=== PATIENT | female | born 1945 | race Caucasian/White ===

== ENCOUNTER → 2017-10-06 | Outpatient (CLI) | payer MEDICARE ==
[~2017-10-06] MED LIST: CALTRATE PO; CITALOPRAM HBR20 MG PO; CO Q-10 PO; CRESTOR5 MG PO; DIOVAN160 MG PO; LORAZEPAM1 MG PO; NORCO 10-325 T1 EACH PO; VITAMIN B-12 PO
--- NOTE | 2017-10-06 08:59 | Diagnostic Imaging Report ---
PROCEDURE:ABDOMINAL ULTRASOUND COMPARISON:None. INDICATIONS:RLQ Abdominal Pain TECHNIQUE: Puentes-scale and color sonographic images were obtained of the abdomen in transverse and sagittal planes. FINDINGS: Liver: 13.6 cm in length and the right midclavicular line. Normal parenchymal echogenicity. No focal mass. Main portal vein: 1.1 cm in caliber, patent with hepatopetal flow Gallbladder: Surgically removed. Common Bile Duct: Dilated to 1.5 cm caliber. Right kidney: 9.3 cm in length, normal renal cortical echogenicity without solid or cystic mass lesion. No shadowing calculus or hydronephrosis. Left kidney: 10.3 cm in length, normal renal cortical echogenicity without solid or cystic mass lesion. No shadowing calculus or hydronephrosis. Spleen: 10 cm in length. Uniform parenchymal echotexture. Pancreas: The visualized portions are unremarkable. Inferior vena cava: Patent Aorta: Non-aneurysmal Ascites: None CONCLUSION: Dilatation of the common bile duct is likely a consequence of cholecystectomy. Correlation with serum bilirubin is suggested. Otherwise unremarkable abdominal ultrasound. Dictated by: Dannie Martinez M.D. on 10/06/2017 at 9:04 Electronically approved by: Dannie Martinez M.D. on 10/06/2017 at 9:04
--- NOTE | 2017-10-06 09:15 | Diagnostic Imaging Report ---
PROCEDURE:PELVIC ULTRASOUND COMPARISON:None. INDICATIONS:RLQ Pain TECHNIQUE: Grayscale transverse and sagittal transabdominal images were obtained of the pelvis. FINDINGS: UTERUS: Surgically removed RIGHT OVARY: Nonvisualized. LEFT OVARY: Not visualized. There is no free fluid within the pelvis. No adnexal masses. Sonographic evaluation of the right lower quadrant of the abdomen, the reported area of clinical concern, shows no mass lesion or fluid collection. CONCLUSION: Status post hysterectomy with nonvisualization of the ovaries. No mass lesion or fluid collection in the area of clinical concern in the right lower quadrant of the abdomen. Dictated by: Dannie Martinez M.D. on 10/06/2017 at 9:20 Electronically approved by: Dannie Martinez M.D. on 10/06/2017 at 9:20
--- NOTE | 2017-10-06 11:35 | Diagnostic Imaging Report ---
EXAM: DXA BONE DENSITY INDICATIONS: Menopause COMPARISON: None. FINDINGS: Proximal left femur total bone mineral density (BMD) (g/cm2):0.886 Femur T-score (standard deviation relative to young adult mean BMD): -0.5 Femur Z-score (standard deviation relative to age-matched control group):1.1 Proximal left femur neck bone mineral density (BMD) (g/cm2):0.737 Femur T-score (standard deviation relative to young adult mean BMD): -1.0 Femur Z-score (standard deviation relative to age-matched control group):0.8 Lumbar bone mineral density (BMD) (g/cm2):1.090 Lumbar T-score (standard deviation relative to young adult mean BMD): 0.4 Lumbar Z-score (standard deviation relative to age-matched control group):2.5 Change since prior exam (%): Femur:Not applicable. Spine:Not applicable. Change since oldest prior exam (%): Femur:Not applicable. Spine:Not applicable. CONCLUSION: 1. Bone mineral density in the left femur is classified as normal. Fracture risk is not increased. 2. Bone mineral density in the spine is classified as normal. Fracture risk is not increased. World Health Organization Classification: *The Z-score is provided for informational purposes. The T-score is preferable for clinical decisions. When comparing exams, a change of >4% is considered statistically significant. SUGGESTED RECOMMENDATIONS: Normal \T\ Osteopenia:Consideration should be given to use of calcium supplementation, daily multiple vitamins and adequate exercise, as preventive measures against osteoporosis, if clinically indicated. Osteoporosis \T\ Severe Osteoporosis:In addition to the above, consideration should be given to medical therapy against osteoporosis, if clinically indicated. Brennon Felix M.D. Dictated by: Brennon Felix M.D. on 10/06/2017 at 11:40 Electronically approved by: Brennon Felix M.D. on 10/06/2017 at 11:40
== END ==
LOC: US 07:23
PROVIDERS: ATTEND Family Medicine
DX: R10.31 Right lower quadrant pain (principal); M89.9 Disorder of bone, unspecified
CPT/HCPCS: 76700; 76856; 77080

== ENCOUNTER 2018-05-31 17:47 | Emergency (ER) | payer MEDICARE ==
[~2018-05-31] VITALS: Ht 157.5 cm; Wt 81.6 kg
--- OUTSIDE RECORDS SUMMARY | 2018-05-31 17:50 | XMS REPORT | Clinical Summary ---
Author Author [facility] Address Unknown Phone Unavailable Care Team Providers Care Hand Crown Pouncer Name Role Phone Jose Brown MD PCP Allergies Not on File Medications Not on file Active Problems Not on file Social History Date Tobacco Use Types Packs/Day Years Used Never Assessed Sex Assigned at Date Recorded Not on file Industry Job Start Date Occupation Not on file Not on file Not on file Travel End Travel History Travel Start No recent travel history available. Last Filed Vital Signs Not on file Plan of Treatment Not on file Results Not on fileafter 05/30/2017 Insurance Payer Benefit Subscriber ID Type Phone Address Plan / Group MEDICARE MEDICARE A xxxxxxxxxx Medicare B MCR SUPPLEMENT/INDIVIDUAL AARP/UNITE xxxxxxxxxxx Medigap D HEALTHCARE (Home) [place] [address]
--- OUTSIDE RECORDS SUMMARY | 2018-05-31 17:50 | XMS REPORT ---
Author Author [facility] Address Unknown Phone Unavailable Care Team Providers Care Wind Turbine Controls Engineer Name Role Phone MARY RAHMAN Unavailable Unavailable Problems This patient has no known problems. Allergies, Adverse Reactions, Alerts This patient has no known allergies or adverse reactions. Medications This patient has no known medications. Results Test Description Test Time Test Comments Text Results Atomic Results Result Comments BONE DXA DUAL ENERGY 2017-10-06 11:40:00 [place] [address] Patient Name: HUDSON FAJARDO MR #: [id number] : 1945 Age/Sex: 71/F Req #: [id number] Adm Physician: Ordered by: MARY RAHMAN MD Report #: [id number] Location: US Room/Bed: Procedure: [id number] DX/BONE DXA DUAL ENERGY Exam Date: Exam Time: REPORT STATUS: Signed EXAM: DXA BONE DENSITY INDICATIONS: Menopause COMPARISON: None. FINDINGS: Proximal left femur total bone mineral density (BMD) (g/cm2): 0.886 Femur T-score (standard deviation relative to young adult mean BMD): -0.5 Femur Z-score (standard deviation relative to age-matched control group): 1.1 Proximal left femur neck bone mineral density (BMD) (g/cm2): 0.737 Femur T-score (standard deviation relative to young adult mean BMD): -1.0 Femur Z-score (standard deviation relative to age-matched control group): 0.8 Lumbar bone mineral density (BMD) (g/cm2): 1.090 Lumbar T-score (standard deviation relative to young adult mean BMD): 0.4 Lumbar Z-score (standard deviation relative to age-matched control group): 2.5 Change since prior exam (%): Femur: Not applicable. Spine: Not applicable. Change since oldest prior exam (%): Femur: Not applicable. Spine: Not applicable. CONCLUSION: 1. Bone mineral density in the left femur is classified as normal. Fracture risk is not increased. 2. Bone mineral density in the spine is classified as normal. Fracture risk is not increased. World Health Organization Classification: *The Z-score is provided for informational purposes. The T-score is preferable for clinical decisions. When comparing exams, a change of >4% is considered statistically significant. SUGGESTED RECOMMENDATIONS: Normal T Osteopenia: Consideration should be given to use of calcium supplementation, daily multiple vitamins and adequate exercise, as preventive measures against osteoporosis, if clinically indicated. Osteoporosis T Severe Osteoporosis: In addition to the above, consideration should be given to medical therapy against osteoporosis, if clinically indicated. Arline Felix M.D. Dictated by: Arline Felix M.D. on 10/06/2017 at 11:40 Electronically approved by: Arline Felix M.D. on 10/06/2017 at 11:40 Dictated By: ARLINE FELIX MD 1140 Transcribed By: SUSIE on 10/06/17 1140 COPY TO: MARY RAHMAN MD PELVIS COMPLETE NON OB 2017-10-06 09:20:00 [place] [address] Patient Name: HUDSON FAJARDO MR #: [id number] : 1945 Age/Sex: 71/F Req #: [id number] Adm Physician: Ordered by: MARY RAHMAN MD Report #: [id number] Location: US Room/Bed: Procedure: [id number] US/US PELVIS COMPLETE NON OB Exam Date: Exam Time: REPORT STATUS: Signed PROCEDURE: PELVIC ULTRASOUND COMPARISON: None. INDICATIONS: RLQ Pain TECHNIQUE: Grayscale transverse and sagittal transabdominal images were obtained of the pelvis. FINDINGS: UTERUS: Surgically removed RIGHT OVARY: Nonvisualized. LEFT OVARY: Not visualized. There is no free fluid within the pelvis. No adnexal masses. Sonographic evaluation of the right lower quadrant of the abdomen, the reported area of clinical concern, shows no mass lesion or fluid collection. CONCLUSION: Status post hysterectomy with nonvisualization of the ovaries. No mass lesion or fluid collection in the area of clinical concern in the right lower quadrant of the abdomen. Dictated by: Hunter Holland M.D. on 10/06/2017 at 9:20 Electronically approved by: Hunter Holland M.D. on 10/06/2017 at 9:20 Dictated By: HUNTER HOLLAND MD 9 Transcribed By: SUSIE on 10/06/17919 COPY TO: MARY RAHMAN MD US ABDOMEN COMPLETE 2017-10-06 09:04:00 [place] [address] Patient Name: HUDSON FAJARDO MR #: [id number] : 1945 Age/Sex: 71/F Req #: [id number] Adm Physician: Ordered by: MARY RAHMAN MD Report #: [id number] Location: Room/Bed: Procedure: [id number] US/US ABDOMEN COMPLETE Exam Date: Exam Time: REPORT STATUS: Signed PROCEDURE: ABDOMINAL ULTRASOUND COMPARISON: None. INDICATIONS: RLQ Abdominal Pain TECHNIQUE: Puentes-scale and color sonographic images were obtained of the abdomen in transverse and sagittal planes. FINDINGS: Liver: 13.6 cm in length and the right midclavicular line. Normal parenchymal echogenicity. No focal mass. Main portal vein: 1.1 cm in caliber, patent with hepatopetal flow Gallbladder: Surgically removed. Common Bile Duct: Dilated to 1.5 cm caliber. Right kidney: 9.3 cm in length, normal renal cortical echogenicity without solid or cystic mass lesion. No shadowing calculus or hydronephrosis. Left kidney: 10.3 cm in length, normal renal cortical echogenicity without solid or cystic mass lesion. No shadowing calculus or hydronephrosis. Spleen: 10 cm in length. Uniform parenc hymal echotexture. Pancreas: The visualized portions are unremarkable. Inferior vena cava: Patent Aorta: Non-aneurysmal Ascites: None CONCLUSION: Dilatation of the common bile duct is likely a consequence of cholecystectomy. Correlation with serum bilirubin is suggested. Otherwise unremarkable abdominal ultrasound. Dictated by: Hunter Holland M.D. on 10/06/2017 at 9:04 Electronically approved by: Hunter Holland M.D. on 10/06/2017 at 9:04 Dictated By: HUNTER HOLLAND MD 3 Transcribed By: SUSIE on 10/06/17903 COPY TO: MARY RAHMAN MD
--- NOTE | 2018-05-31 18:43 | NUR ---
REPORT TO JAISON PEDRO ALL QUESTIONS ANSWERED
[2018-05-31] MEDS ORDERED: IOPAMIDOL 370 MG/ML 50ML INFUS..BTL INJ ONE (18:45)
--- NOTE | 2018-05-31 18:53 | NUR ---
ASSUMED CARE OF PT
--- NOTE | 2018-05-31 19:08 | Diagnostic Imaging Report ---
PA and lateral views of the chest. HISTORY: None provided COMPARISON: None available. DISCUSSION: Portable technique, limits sensitivity of the exam. Tubes/Lines: None Lungs and pleura: Suboptimal lung volumes result in bibasilar vascular crowding, accentuation of the pulmonary interstitial markings, central pulmonary vasculature, and the cardiac silhouette. Allowing for these limitations, the findings are as follows: Minimal left basilar atelectasis versus scarring. No evidence of a consolidative pneumonia or pulmonary alveolar edema. No definite pleural effusion or pneumothorax is identified. Heart and mediastinum: The cardiomediastinal silhouette appears unremarkable. Bones and soft tissues: Mild multilevel degenerative changes of thoracic spine. IMPRESSION: No acute radiographic abnormality. Signed by: Dr. Chi Finch D.O., M.M.M. on 05/31/2018 7:04 PM
--- NOTE | 2018-05-31 19:42 | Diagnostic Imaging Report ---
CT CHEST WITH CONTRAST HISTORY: Chest pain COMPARISON: None available. TECHNIQUE: CT scan of the chest WITH intravenous contrast, using PE protocol. The chest was scanned utilizing a multidetector helical scanner from the lung apex through the level of the adrenal glands. Thin section reconstructions were obtained with special concentration on the pulmonary arteries. IV CONTRAST: 100 cc of Isovue-370. PROTOCOL: PE RADIATION DOSE: Total DLP: 437.74 mGy*cm Dose modulation, iterative reconstruction, and/or weight based adjustment of the mA/kV was utilized to reduce the radiation dose to as low as reasonably achievable. COMPLICATIONS: None DISCUSSION: The exam is partially limited due to artifacts secondary to dense contrast within the left brachiocephalic vein and superior vena cava. Lungs: Low lung volumes result in bibasilar vascular crowding, accentuation of the pulmonary interstitial markings, central pulmonary vasculature, and the cardiac silhouette. Allowing for these limitations, the findings are as follows: Bilateral mild atelectasis versus scarring. Vessels: No filling defects are identified within the pulmonary arteries to the segmental levels. Scattered atherosclerotic calcifications. Airways: Mild bronchial wall thickening. Pleura: No pleural effusion or pneumothorax. Heart and mediastinum: Unremarkable Abdomen: Limited evaluation of the upper abdomen. Diffuse parenchymal atrophy of the pancreas. The gallbladder is not visualized and the common bile duct is dilated, compatible with reservoir effect, correlate for prior cholecystectomy. Lymph nodes: No pathologically enlarged lymph node. Bones: No acute bone abnormality. Accentuation of thoracic kyphosis and multilevel degenerative changes. Soft tissues: Unremarkable IMPRESSION: 1. No pulmonary embolus. 2. Mild bilateral atelectasis. 3. Mild bronchial wall thickening, may be seen in the setting of a nonspecific bronchitis. Signed by: Dr. Chi Finch D.O., M.M.M. on 05/31/2018 7:38 PM
--- NOTE | 2018-05-31 20:55 | NUR ---
pt signed out AMA as she does not want to be admitted.
[2018-05-31 21:18] VITALS: BP 149/82
== END 2018-05-31 20:55 | disposition left against medical advice (07) ==
LOC: FSED 17:47
DX: R07.89 Other chest pain (principal); R55 Syncope and collapse; R51 Headache; R50.9 Fever, unspecified; R05 Cough
CPT/HCPCS: 71046; 71275; 80053; 84484; 85025; 85379; 93005; 99284; Q9967

== ENCOUNTER → 2018-06-22 | Day surgery (SDC) | payer MEDICARE ==
[~2018-06-22] MED LIST changes: +IOPAMIDOL 200 MG/ML 20 ML VIAL IT ONE; +IOPAMIDOL 610MG/1ML 300 MG/ML VIAL IV ONE; +IRBESARTAN300 MG PO; +LIDOCAINE HCL 1% 30ML-PF VIAL ONE; +LIDOCAINE HCL 2% LOCAL INJ 5 ML SDV VIAL INJ ONE; +MIDAZOLAM HCL 2 MG/2 ML VIAL ONE; +NIFEDIPINE ER30 M1 PO; +PROPOFOL IV EMULSION 10 MG/ML 20 ML VIAL ONE; +TRIAMCINOLONE ACET 40 MG/ML VIAL ONE
--- OUTSIDE RECORDS SUMMARY | 2018-06-22 05:15 | XMS REPORT | Clinical Summary ---
Author Author [facility] Address Unknown Phone Unavailable Care Team Providers Care Social Contact Worker Name Role Phone Jose Brown MD PCP [...] Not on file Results Not on fileafter 06/21/2017 Insurance Payer Benefit Subscriber ID Type Phone Address Plan / Group MEDICARE MEDICARE A xxxxxxxxxx Medicare B MCR SUPPLEMENT/INDIVIDUAL AARP/UNITE xxxxxxxxxxx [employer] D HEALTHCARE (Home) [place] [address]
[2018-06-22 07:25] VITALS: BP 112/61
== END | disposition home or self-care (01) ==
LOC: OR 05:13
PROVIDERS: ATTEND Physical Medicine & Rehabilitation Pain Medicine
DX: M47.896 Other spondylosis, lumbar region (principal); M54.16 Radiculopathy, lumbar region; M54.12 Radiculopathy, cervical region; I25.10 Atherosclerotic heart disease of native coronary artery without angina pectoris; I10 Essential (primary) hypertension; E78.5 Hyperlipidemia, unspecified; F32.9 Major depressive disorder, single episode, unspecified; Z96.653 Presence of artificial knee joint, bilateral
CPT/HCPCS: 64493; 64494; 64495; J2001 ×2; J2250; J2704; J3301; Q9967 ×2; 77003

== ENCOUNTER → 2018-12-07 | Outpatient (CLI) | payer MEDICARE ==
[~2018-12-07] MED LIST changes: -IOPAMIDOL 200 MG/ML 20 ML VIAL IT ONE; -IOPAMIDOL 610MG/1ML 300 MG/ML VIAL IV ONE; -LIDOCAINE HCL 1% 30ML-PF VIAL ONE; -LIDOCAINE HCL 2% LOCAL INJ 5 ML SDV VIAL INJ ONE; -MIDAZOLAM HCL 2 MG/2 ML VIAL ONE; -PROPOFOL IV EMULSION 10 MG/ML 20 ML VIAL ONE; -TRIAMCINOLONE ACET 40 MG/ML VIAL ONE
--- NOTE | 2018-12-07 12:18 | Diagnostic Imaging Report ---
MRI right ankle without contrast. MRI of the right foot without contrast. History: Ankle pain. Foot pain. Heel pain. Pain not responding to conservative management. Technique: Multiplanar multisequence MRI of the right ankle without contrast. Multiplanar multisequence MRI of the right foot without contrast Comparison: None Findings: Ankle mri: Achilles tendon and plantar fascia: Distal Achilles tendinosis with midsubstance degeneration and mild adjacent soft tissue edema. No tear or retraction. The plantar fascial tissues are intact. Small inferior calcaneal bone spur. Cartilage and bone: Negative for osteochondral lesion of the tibiotalar and subtalar joints. Negative for fracture, osteonecrosis, or stress related edema. Medial ankle: The deltoid ligament complex is intact. The medial flexor tendons are normal. There is a physiologic amount of fluid within the tendon sheath of FHL. Lateral ankle: The anterior talofibular, calcaneofibular, and posterior talofibular ligaments are intact. The syndesmotic ligaments are intact. The peroneal tendons are normal. Anterior ankle: The anterior extensor tendons are normal. Other findings: Small tibiotalar joint effusion and mild synovitis. Foot mri : There is no acute fracture, subluxation or avascular necrosis about the foot. Scattered degenerative changes are seen. This is most pronounced at the cuneiform/metatarsal articulations involving the first through third digits. This is best seen on series 5 image 4 through 8. There are regions of articular cartilage loss, joint space narrowing, subchondral cystic change and mild bone marrow edema with mild adjacent soft tissue edema. No osseous erosion. No ligamentous or tendon tear. The visualized muscles are normal in size, signal intensity and morphology. The visualized neurovascular bundles are intact. Impression: Distal Achilles tendinosis with midsubstance degeneration and mild adjacent soft tissue edema. No tear or retraction. The plantar fascial tissues are intact. Small inferior calcaneal bone spur. Scattered degenerative arthrosis most pronounced at the cuneiform/metatarsal articulations as described above. Signed by: Dr. Jose Durham M.D. on 12/07/2018 12:15 PM
== END ==
LOC: MRI 09:42
PROVIDERS: ATTEND Physical Medicine & Rehabilitation Pain Medicine
DX: M25.571 Pain in right ankle and joints of right foot (principal); M79.671 Pain in right foot

== ENCOUNTER → 2023-09-07 | Day surgery (SDC) | payer MEDICARE ==
[2023-09-06 10:02] LABS: BASOPHILS # (AUTO) 0.1 (0.0-0.1); BASOPHILS % 0.5 % (0.0-1.0); EOSINOPHILS # (AUTO) 0.5 (0.0-0.4); EOSINOPHILS % 5.2 % (0.0-6.0); HEMATOCRIT 43.4 % (34.2-44.1); HEMOGLOBIN 13.5 g/dL (12.0-16.0); LYMPHOCYTES # (AUTO) 2.9 (1.0-3.2); MEAN CORPUSCULAR HEMOGLOBIN 31.5 pg (28-32); MEAN CORPUSCULAR HGB CONC 31.1 g/dL (31-35); MEAN CORPUSCULAR VOLUME 101.4 fL (81-99); MONOCYTES % 10.6 % (4.4-11.3); NEUTROPHILS # (AUTO) 4.7 (2.1-6.9); NEUTROPHILS % 51.3 % (38.7-80.0); PLATELET COUNT 203 x10e3/uL (140-360); RED BLOOD COUNT 4.28 x10e6/uL (3.6-5.1); RED CELL DISTRIBUTION WIDTH 12.5 % (11.7-14.4); WHITE BLOOD COUNT 9.19 x10e3/uL (4.8-10.8)
[~2023-09-07] MED LIST changes: +DEXAMETHASONE SOD PHOS 10 MG/1 ML VIAL ONE; +LIDOCAINE HCL 2% LOCAL INJ 5 ML SDV VIAL INJ ONE; +PREVAGEN PO; +PROPOFOL IV EMULSION 10 MG/ML 20 ML VIAL ONE
[2023-09-07] MEDS: LACTATED RINGER'S 1,000 ML ONE (09:40)
[2023-09-07 10:51] VITALS: TEMP 97
[2023-09-07 11:10] VITALS: BP 122/56; PULSE 62; RESP 18; O2SAT 98
== END | disposition home or self-care (01) ==
LOC: OR 08:51
PROVIDERS: ATTEND Physical Medicine & Rehabilitation Pain Medicine
DX: M54.16 Radiculopathy, lumbar region (principal); M47.896 Other spondylosis, lumbar region; G89.4 Chronic pain syndrome; M47.812 Spondylosis without myelopathy or radiculopathy, cervical region; M48.02 Spinal stenosis, cervical region; M70.72 Other bursitis of hip, left hip; M70.71 Other bursitis of hip, right hip; I25.10 Atherosclerotic heart disease of native coronary artery without angina pectoris; I10 Essential (primary) hypertension; E78.5 Hyperlipidemia, unspecified; K21.9 Gastro-esophageal reflux disease without esophagitis; F41.9 Anxiety disorder, unspecified; F32.A Depression, unspecified; Z01.810 Encounter for preprocedural cardiovascular examination; Z01.812 Encounter for preprocedural laboratory examination; Z79.899 Other long term (current) drug therapy
CPT/HCPCS: 36415; 77002; 85025; 93005; J1100; J2001

== ENCOUNTER → 2024-01-04 | Outpatient (REF) | payer MEDICARE ==
[~2024-01-04] MED LIST changes: -DEXAMETHASONE SOD PHOS 10 MG/1 ML VIAL ONE; -LIDOCAINE HCL 2% LOCAL INJ 5 ML SDV VIAL INJ ONE; -PROPOFOL IV EMULSION 10 MG/ML 20 ML VIAL ONE
== END ==
LOC: MRI 12:40
PROVIDERS: ATTEND Physical Medicine & Rehabilitation Pain Medicine
DX: M25.551 Pain in right hip (principal)